=== PATIENT | female | born 1985 | race Caucasian/White ===

== ENCOUNTER 2019-06-12 11:42 | Emergency (ER) | payer OTHER ==
--- NOTE | 2019-06-12 13:28 | ER Document Report ---
ED Medical Screen (RME) - General Chief Complaint: Abdominal Pain Stated Complaint: LOWER ABDOMINAL PAIN/RIGHT ARMPIT PAIN Time Seen by Provider: 06/12/19 13:22 Mode of Arrival: Ambulatory Information source: Patient Notes: Otherwise healthy 33-year-old female presents emergency department chief complaint of low abdominal pain over the last 3 months but worsening over the last 3 days. Patient reports associated nausea but denies vomiting, diarrhea, fevers or abnormal vaginal discharge. She does report having a history of reactive lymph nodes in her breast and axillary area. She is concerned that she may have reactive lymph nodes in her groin. Exam: Tenderness on palpation to the low abdomen, no guarding no rebound. I have greeted and performed a rapid initial assessment of this patient. A comprehensive ED assessment and evaluation of the patient, analysis of test results and completion of the medical decision making process will be conducted by additional ED providers. I have specifically instructed the patient or family members with the patient to immediately return to any nursing staff should anything change in the patient's condition or with their chief complaint. - Related Data Allergies/Adverse Reactions: No Known Allergies Allergy (Unverified 06/12/19 13:21) Past Medical History - Social History Chew tobacco use (# tins/day): No Drug Abuse: None Physical Exam - Vital signs Vitals: Temp Pulse Resp BP Pulse Ox 98.5 F 67 16 116/69 98 06/12/19 12:15 06/12/19 12:15 06/12/19 12:15 06/12/19 12:15 06/12/19 12:15 Course - Vital Signs Vital signs: Temp Pulse Resp BP Pulse Ox 98.5 F 67 16 116/69 98 06/12/19 12:15 06/12/19 12:15 06/12/19 12:15 06/12/19 12:15 06/12/19 12:15
[2019-06-12 14:28] LABS: APPEARANCE,URINE CLEAR; BILIRUBIN,URINE NEGATIVE (NEGATIVE); COLOR,URINE STRAW; GLUCOSE, URINE NEGATIVE (NEGATIVE); KETONES,URINE NEGATIVE (NEGATIVE); LEUKOCYTE ESTERASE,URINE NEGATIVE (NEGATIVE); NITRITE,URINE NEGATIVE (NEGATIVE); PROTEIN,URINE NEGATIVE (NEGATIVE); URINE SPECIFIC GRAVITY 1.018; UROBILINOGEN,URINE NEGATIVE mg/dL (<2.0)
[2019-06-12 14:54] LABS: ABSOLUTE EOSINOPHILS # (AUTO) 0.3 10^3/uL (0.0-0.6); ABSOLUTE LYMPHOCYTES (AUTO) 2.5 10^3/uL (0.5-4.7); ABSOLUTE MONOCYTES (AUTO) 0.5 10^3/uL (0.1-1.4); ABSOLUTE NEUT (AUTO) 4.1 10^3/uL (1.7-8.2); BASOPHILS % (AUTO) 0.6 % (0-2); EOSINOPHILS % (AUTO) 3.5 % (0-6); HEMATOCRIT 45.4 % (36.0-47.0); HEMOGLOBIN 15.3 g/dL (12.0-15.5); LYMPHOCYTES % (AUTO) 33.3 % (13-45); MEAN CORPUSCULAR HGB CONC 33.7 g/dL (32.0-36.0); MEAN CORPUSCULAR VOLUME 86 fl (80-97); MONOCYTES % (AUTO) 7.2 % (3-13); PLATELET COUNT 220 10^3/uL (150-450); RED BLOOD COUNT 5.27 10^6/uL (3.72-5.28); RED CELL DISTRIBUTION WIDTH 13.4 % (11.5-14.0); SEGMENTED NEUTROPHILS % (AUTO) 55.4 % (42-78); TOTAL CELLS COUNTED % (AUTO) 100 %; WHITE BLOOD COUNT 7.4 10^3/uL (4.0-10.5)
[2019-06-12 15:09] LABS: ALKALINE PHOSPHATASE 89 U/L (38-126); ANION GAP 14 (5-19); ASPARTATE AMINO TRANSFERASE 44 U/L (14-36); BILIRUBIN,DIRECT 0.2 mg/dL (0.0-0.4); BILIRUBIN,TOTAL 0.3 mg/dL (0.2-1.3); BLOOD UREA NITROGEN 12 mg/dL (7-20); CALCIUM 10.1 mg/dL (8.4-10.2); CARBON DIOXIDE 23 mmol/L (22-30); CHLORIDE 104 mmol/L (98-107); GLUCOSE 83 mg/dL (75-110); POTASSIUM 4.4 mmol/L (3.6-5.0); TOTAL PROTEIN 8.1 g/dL (6.3-8.2)
--- NOTE | 2019-06-12 15:34 | ER Document Report ---
ED General - General Chief Complaint: Abdominal Pain Stated Complaint: LOWER ABDOMINAL PAIN/RIGHT ARMPIT PAIN Time Seen by Provider: 06/12/19 13:22 Mode of Arrival: Ambulatory - HPI Notes: 33-year-old female with a chief complaint of 3 months history of suprapubic discomfort and secondary amenorrhea. Patient is a 2 para 2 with 1 set of twins and 1 spontaneous miscarriage. She had a NuvaRing for contraception and this was stopped about 3 months ago. She notes that she has not restarted her period then and has had cramping discomfort in suprapubic area intermittently since then. She is not considered is bad enough to take any pain medication. She denies dysuria, fever, chills, nausea, vomiting or change in bowel habits. She denies any known history of endometriosis or fibroids. 10 pound weight gain within the last 3 months. 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 She is not currently on any medication. Patient reports no known allergies. She is a non-smoker. Rare social alcohol. Denies use of drugs. - Related Data Allergies/Adverse Reactions: No Known Allergies Allergy (Unverified 06/12/19 13:21) Past Medical History - General Information source: Patient - Social History Smoking Status: Never Smoker Chew tobacco use (# tins/day): No Drug Abuse: None Family History: Reviewed & Not Pertinent Patient has suicidal ideation: No Patient has homicidal ideation: No Past Surgical History: Reports: Other - Transphenoidal hypophysectomy for Joie's disease Review of Systems - Review of Systems Notes: Constitutional: Negative for fever. HENT: Negative for sore throat. Eyes: Negative for visual changes. Cardiovascular: Negative for chest pain. Respiratory: Negative for shortness of breath. Gastrointestinal: Negative for abdominal pain, vomiting or diarrhea. Genitourinary: As per HPI. Musculoskeletal: Negative for back pain. Skin: Negative for rash. Neurological: Negative for headaches, weakness or numbness. 10 point ROS negative except as marked above and in HPI. Physical Exam - Vital signs Vitals: Temp Pulse Resp BP Pulse Ox 98.5 F 67 16 116/69 98 06/12/19 12:15 06/12/19 12:15 06/12/19 12:15 06/12/19 12:15 06/12/19 12:15 - Notes Notes: GENERAL: Well-developed well-nourished appearing in no acute distress. SKIN: Good turgor no rashes. HEAD: Normocephalic atraumatic. EYES: PERRLA. EOMI. Conjunctivae and sclerae clear. EARS: CANALS AND TMS CLEAR. NOSE: CLEAR. MOUTH: Moist mucosa. Good dentition. No stridor or edema. No drooling. NECK: Supple. No masses or thyromegaly. No adenopathy. Carotids 2+ without bruits. No JVD. BACK: Symmetrical without tenderness. CHEST: Respirations unlabored. Breath sounds clear and symmetrical. HEART: Regular rhythm. No murmur gallop or rub. ABDOMEN: Soft nontender without masses, organomegaly or rebound. Bowel sounds normally active. No bruits. GENITALIA: Deferred. EXTREMITIES: No edema. No calf tenderness. Cap refill less than 1.5 seconds. Dorsalis pedis and posterior tibial pulses 3+ and symmetrical. NEUROLOGICAL: GCS 15. Alert and oriented x3. Normal gait. Fluent speech. Cranial nerves II through XII intact. Sensorimotor and cerebellar normal. Normal tone. PSYCHIATRIC: Appropriate affect. Course - Re-evaluation Re-evalutation: 06/12/19 18:02 FSH and TSH are both normal. She has some changes consistent with hemorrhagic cyst of the right ovary. Left ovary is not visualized. No other abnormalities reported on the ultrasound of the pelvis. I think she stable for outpatient follow-up with [facility] and will make referral for her. I am also going to start her on some naproxen at home. - Vital Signs Vital signs: Temp Pulse Resp BP Pulse Ox 98.5 F 67 16 116/69 98 06/12/19 12:15 06/12/19 12:15 06/12/19 12:15 06/12/19 12:15 06/12/19 12:15 - Laboratory Result Diagrams: 06/12/19 14:42 06/12/19 14:42 Laboratory results interpreted by me: 06/12/19 14:42 Creatinine 0.51 L AST 44 H FSH and TSH are both normal.06/12/19 18:03 - Diagnostic Test Radiology reviewed: Reports reviewed Discharge - Discharge Clinical Impression: Ovarian cyst, right, Pelvic pain, Secondary amenorrhea Condition: Stable Disposition: HOME, SELF-CARE Additional Instructions: Ovarian Cyst Your examination shows the presence of an ovarian cyst. This is a ball of fluid attached to the ovary. Ovarian cysts in women of child-bearing age are usually innocent. However, the cyst may cause pain when it grows or bursts. An innocent ovarian cyst will usually go away by itself. When the cyst becomes painful, you should rest. Pain medication may be required. Some women find a hot water bottle soothing. The pain usually resolves within one or two days. After menopause, an ovarian cyst may mean a tumor, and requires more aggressive evaluation -- usually surgery is recommended to remove or biopsy the cyst. A very large cyst requires evaluation at any age. Most cysts (even the innocent ones) require follow-up examination. Call the doctor or return at any time if the pain increases significantly, if you become faint, or if you experience vaginal bleeding. Return here as needed for new or worsening symptoms. Take prescribed medicine as directed Follow-up with referral [facility] specialist. Prescriptions: Naproxen 500 mg PO BID PRN #14 tablet PRN Reason:
--- NOTE | 2019-06-12 17:51 | RADIOLOGY REPORT (SQ) ---
EXAM DESCRIPTION: U/S NON OB PEL TV W/DOPPLER COMPLETED DATE/TIME: 06/12/2019 5:18 pm REASON FOR STUDY: Pelvic pain and amenorrhea COMPARISON: None. TECHNIQUE: Dynamic and static grayscale images acquired of the pelvis via transvaginal approach and recorded on PACS. Additional selected color Doppler and spectral images recorded. LIMITATIONS: None. FINDINGS: UTERUS: Contour normal. No mass. ENDOMETRIAL STRIPE: No focal or generalized thickening. No masses. CERVIX: Incidental note is note of a small nabothian cyst. RIGHT OVARY AND DOPPLER: The right ovary is expanded by what appears to be a hemorrhagic cyst (comple x echogenicity demonstrating posterior acoustic enhancement). Venous flow was demonstrated. LEFT OVARY AND DOPPLER: Obscured by intervening bowel gas. FREE FLUID: None noted. OTHER: No other significant finding. MEASUREMENTS: UTERUS: 8.4 x 4.0 x 5.0 cm ENDOMETRIAL STRIPE: 1.7 cm RIGHT OVARY: 4.4 x 4.2 x 4.0 cm LEFT OVARY: Not visualized. IMPRESSION: Likely right ovarian hemorrhagic cyst; consider repeat sonographic evaluation in 3 month s. The left ovary is not visualized on today's examination. TECHNICAL DOCUMENTATION: JOB ID: [id number] [employer]- All Rights Reserved Rev-11/01 Reading location - IP/workstation name: [email or web address]
[2019-06-12 18:46] VITALS: BP 114/74
== END 2019-06-12 18:43 | disposition home or self-care (01) ==
LOC: ER 11:42
DX: N83.201 Unspecified ovarian cyst, right side (principal); N91.1 Secondary amenorrhea; R10.2 Pelvic and perineal pain; R63.5 Abnormal weight gain
CPT/HCPCS: 36415; 76830; 80053; 81001; 83001; 84443; 84703; 85025; 93976; 99284

== ENCOUNTER 2019-08-20 20:09 | Emergency (ER) | payer OTHER ==
--- NOTE | 2019-08-20 20:39 | ER Document Report ---
ED Medical Screen (RME) - General Chief Complaint: Abdominal Pain Stated Complaint: ABDOMINAL PAIN, NAUSEA, DIZZINESS Time Seen by Provider: 08/20/19 20:35 Mode of Arrival: Ambulatory Information source: Patient Notes: 33-year-old female presents to ED for complaint of abdominal pain nausea ordering in her mouth but no vomiting. She states she does have chronic constipation and is needed have a bowel movement for a while has only had a little bit of watery stool when she takes double Linzess. 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 She also has a history of scoliosis. She states her last menstrual period was August 03. She does not smoke she does socially drink but no drugs. She states that the constipation and pain is so bad she cannot take care of her children for dinner tonight because of the pain and discomfort. Patient is alert oriented respirations regular nonlabored speaking in full sentences. I have greeted and performed a rapid initial assessment of this patient. A comprehensive ED assessment and evaluation of the patient, analysis of test results and completion of medical decision making process will be conducted by an additional ED providers. - Related Data Allergies/Adverse Reactions: No Known Allergies Allergy (Verified 08/20/19 20:31) Past Medical History Past Surgical History: Reports: Other - Transphenoidal hypophysectomy for [place]'s disease Physical Exam - Vital signs Vitals: Temp Pulse Resp BP Pulse Ox 98.4 F 79 20 128/75 H 100 08/20/19 20:29 08/20/19 20:29 08/20/19 20:29 08/20/19 20:29 08/20/19 20:29 Course - Vital Signs Vital signs: Temp Pulse Resp BP Pulse Ox 98.4 F 79 20 128/75 H 100 08/20/19 20:29 08/20/19 20:29 08/20/19 20:29 08/20/19 20:29 08/20/19 20:29
[2019-08-20 20:56] LABS: ABSOLUTE EOSINOPHILS # (AUTO) 0.3 10^3/uL (0.0-0.6); ABSOLUTE MONOCYTES (AUTO) 0.7 10^3/uL (0.1-1.4); ABSOLUTE NEUT (AUTO) 6.3 10^3/uL (1.7-8.2); BASOPHILS % (AUTO) 0.4 % (0-2); EOSINOPHILS % (AUTO) 3.1 % (0-6); HEMATOCRIT 43.3 % (36.0-47.0); HEMOGLOBIN 14.7 g/dL (12.0-15.5); LYMPHOCYTES % (AUTO) 28.6 % (13-45); MEAN CORPUSCULAR HEMOGLOBIN 28.8 pg (27.0-33.4); MEAN CORPUSCULAR HGB CONC 33.9 g/dL (32.0-36.0); MEAN CORPUSCULAR VOLUME 85 fl (80-97); MONOCYTES % (AUTO) 7.2 % (3-13); PLATELET COUNT 255 10^3/uL (150-450); RED BLOOD COUNT 5.09 10^6/uL (3.72-5.28); RED CELL DISTRIBUTION WIDTH 14.1 % (11.5-14.0); SEGMENTED NEUTROPHILS % (AUTO) 60.7 % (42-78); TOTAL CELLS COUNTED % (AUTO) 100 %; WHITE BLOOD COUNT 10.4 10^3/uL (4.0-10.5)
[2019-08-20 21:03] LABS: APPEARANCE,URINE SLIGHTLY-CLOUDY; BILIRUBIN,URINE NEGATIVE (NEGATIVE); COLOR,URINE YELLOW; GLUCOSE, URINE NEGATIVE (NEGATIVE); KETONES,URINE 20 mg/dL (NEGATIVE); PROTEIN,URINE NEGATIVE (NEGATIVE); URINE SPECIFIC GRAVITY 1.028; UROBILINOGEN,URINE NEGATIVE mg/dL (<2.0)
[2019-08-20 21:12] LABS: ALBUMIN 4.6 g/dL (3.5-5.0); ALKALINE PHOSPHATASE 80 U/L (38-126); ANION GAP 9 (5-19); ASPARTATE AMINO TRANSFERASE 24 U/L (14-36); BILIRUBIN,TOTAL 0.2 mg/dL (0.2-1.3); BLOOD UREA NITROGEN 15 mg/dL (7-20); CALCIUM 9.3 mg/dL (8.4-10.2); CARBON DIOXIDE 23 mmol/L (22-30); CHLORIDE 106 mmol/L (98-107); GLUCOSE 93 mg/dL (75-110); POTASSIUM 4.1 mmol/L (3.6-5.0); TOTAL PROTEIN 7.3 g/dL (6.3-8.2)
--- NOTE | 2019-08-20 21:50 | RADIOLOGY REPORT (SQ) ---
EXAM DESCRIPTION: Single view of the chest and two views of the abdomen. CLINICAL HISTORY: 33 years Female, Abdominal pain bloating nausea vomiting COMPARISON: None. FINDINGS: Chest: Lungs are clear. Heart size is normal. No pneumonia or edema. No pneumothorax or pleural effusion. There is postsurgical change of spinal hardware in the thoracic spine. ABDOMEN: Bowel gas pattern is nonspecific with distention noted predominantly in the colon. There is a small amount of air seen in the nondistended small bowel. No air-fluid levels. No free intraperitoneal air. No obstruction. Multiple phleboliths are present in the pelvis. IMPRESSION: 1. No pneumonia or edema. 2. Nonspecific bowel gas pattern. No obstruction or free air.
[2019-08-21 00:19] VITALS: BP 109/71
[2019-08-21] MEDS ORDERED: NORMAL SALINE 1000 ML 1,000 ML IV ONE (00:36)
[2019-08-21] MEDS ORDERED: ONDANSETRON HCL INJ/PF 4 MG/2 ML SDV IV ONE (00:36)
[2019-08-21] MEDS ORDERED: SUCRALFATE 1 GM TABLET PO ONE (00:36)
[2019-08-21] MEDS ORDERED: FAMOTIDINE 20 MG TABLET PO ONE (00:36)
--- NOTE | 2019-08-21 01:07 | ER Document Report ---
ED GI/ - General Chief Complaint: Abdominal Pain Stated Complaint: ABDOMINAL PAIN, NAUSEA, DIZZINESS Time Seen by Provider: 08/20/19 20:35 Mode of Arrival: Ambulatory Notes: Patient is a 33-year-old female who comes emergency department for chief complaint of abdominal pain that is in the mid to upper abdomen and nausea. She denies vomiting. She states that she does have chronic constipation, she took double Linzess for the past couple of days but is still not having significant bowel movements. She states she feels bloated. She denies bloody stools. She denies fever. She denies dysuria, vaginal discharge or bleeding. She has had no abdominal surgeries. She states she has never had an endoscopy or col onoscopy. She states that if she eats she gets nauseated, occasionally gets reflux, and feels full. She has a history of Campbell's disease status post tumor resection, history of scoliosis status post hardware, denies medical history otherwise. She denies daily medications otherwise. TRAVEL OUTSIDE OF THE [place] IN LAST 30 DAYS: No - Related Data Allergies/Adverse Reactions: No Known Allergies Allergy (Verified 08/20/19 20:31) Past Medical History - General Information source: Patient - Social History Smoking Status: Never Smoker Frequency of alcohol use: None Drug Abuse: None Lives with: Family Family History: Reviewed & Not Pertinent Patient has suicidal ideation: No Patient has homicidal ideation: No Past Surgical History: Reports: Other - Transphenoidal hypophysectomy for Campbell's disease - Immunizations Immunizations up to date: Yes Hx Diphtheria, Pertussis, Tetanus Vaccination: Yes Review of Systems - Review of Systems Constitutional: No symptoms reported EENT: No symptoms reported Cardiovascular: No symptoms reported Respiratory: No symptoms reported Gastrointestinal: See HPI Genitourinary: No symptoms reported Female Genitourinary: No symptoms reported Musculoskeletal: No symptoms reported Skin: No symptoms reported Hematologic/Lymphatic: No symptoms reported Neurological/Psychological: No symptoms reported Physical Exam - Vital signs Vitals: Temp Pulse Resp BP Pulse Ox 98.4 F 79 20 128/75 H 100 08/20/19 20:29 08/20/19 20:29 08/20/19 20:29 08/20/19 20:29 08/20/19 20:29 - Notes Notes: GENERAL: Alert, interacts well. No acute distress. HEAD: Normocephalic, atraumatic. EYES: Pupils equal, round, and reactive to light. Extraocular movements intact. ENT: Oral mucosa dry, tongue midline. Oropharynx unremarkable. Airway patent. LUNGS: Clear to auscultation bilaterally, no wheezes, rales, or rhonchi. No respiratory distress. HEART: Regular rate and rhythm. No murmur ABDOMEN: Mild tenderness to the mid to upper abdomen generally, lower abdomen benign. No rigidity or guarding. Bowel sounds present. GENITOURINARY: Deferred EXTREMITIES: Moves all 4 extremities spontaneously. No edema, normal radial and dorsalis pedis pulses bilaterally. No cyanosis. BACK: no cervical, thoracic, lumbar midline tenderness. No saddle anesthesia, normal distal neurovascular exam. Moves all extremities in full range of motion. NEUROLOGICAL: Alert and oriented x3. Normal speech. Cranial nerves II through XII grossly intact. PSYCH: Normal affect, normal mood. SKIN: Warm, dry, normal turgor. No rashes or lesions noted. Course - Re-evaluation Re-evalutation: CBC, chemistry, urinalysis unremarkable except for dehydration. test negative. Acute abdominal series shows some retained gas but no significant retained stool, no obstructive findings. I discussed with patient. Based on her symptoms after eating, vague mid upper abdominal pain, and ongoing symptoms I suspect a component of gastritis. I discussed with patient. I recommended rehydration, treatment for gastritis, and symptom management. I discussed details of gastritis, things to avoid, and follow-up. Patient will be given IV fluids, initial medications, I reevaluate her. Patient states appreciation and agreement. Nursing staff came to me and stated that patient suddenly left stating she was going to her kids. Patient eloped. - Vital Signs Vital signs: Temp Pulse Resp BP Pulse Ox 98.1 F 64 18 109/71 99 08/21/19 00:02 08/21/19 00:02 08/21/19 00:02 08/21/19 00:02 08/21/19 00:02 - Laboratory Result Diagrams: 08/20/19 20:40 08/20/19 20:40 Laboratory results interpreted by me: 08/20/19 08/20/19 20:40 20:40 RDW 14.1 H Urine Ketones 20 H Urine Blood SMALL H Discharge - Discharge Clinical Impression: Abdominal pain Qualifiers: Abdominal location: generalized Qualified Code(s): R10.84 - Generalized abdominal pain Disposition: ELOPED
== END 2019-08-21 01:00 | disposition left against medical advice (07) ==
LOC: ER 20:09
DX: R10.84 Generalized abdominal pain (principal); R11.0 Nausea; E86.0 Dehydration; Z53.29 Procedure and treatment not carried out because of patient's decision for other reasons
CPT/HCPCS: 36415; 74022; 80053; 81001; 83690; 84703; 85025; 99281

== ENCOUNTER 2019-11-27 16:22 | Emergency (ER) | payer OTHER | END 2019-11-27 16:30 | disposition left against medical advice (07) | LOC: ER 16:22 | DX: Z53.21 Procedure and treatment not carried out due to patient leaving prior to being seen by health care provider (principal) ==

== ENCOUNTER 2019-11-27 17:30 | Emergency (ER) | payer OTHER ==
[2019-11-27 20:01] LABS: A TYPE INFLUENZA AG NEGATIVE (NEGATIVE); B INFLUENZA AG NEGATIVE (NEGATIVE)
[2019-11-27 20:48] VITALS: BP 126/84
--- NOTE | 2019-11-27 20:48 | ER Document Report ---
HPI - HPI Patient complains to provider of: Sore throat Time Seen by Provider: 11/27/19 18:04 Onset: Other - This 34-year-old female presents to the emergency room today stating that she had a sore throat. She states that she had pharyngitis 6 weeks ago with white spots exudate and erythema. She was on amoxicillin for 2 days when her doctor flipped her over to her azithromycin. She had been fine when the pain came back 2 days ago. Severity: None Pain Level: 3 Associated Symptoms: None Exacerbated by: Denies - EENT EENT: REPORTS: Sore Throat Past Medical History - General Information source: Patient - Social History Smoking Status: Never Smoker Frequency of alcohol use: Occasional Drug Abuse: None Family History: Reviewed & Not Pertinent Patient has homicidal ideation: No Past Surgical History: Reports: Other - Transphenoidal hypophysectomy for [place]'s disease - Immunizations Immunizations up to date: Yes Hx Diphtheria, Pertussis, Tetanus Vaccination: Yes Vertical Provider Document - CONSTITUTIONAL Agree With Documented VS: Yes - INFECTION CONTROL TRAVEL OUTSIDE OF THE [place] IN LAST 30 DAYS: No - HEENT HEENT: Atraumatic, Conjuctival Injection, Normocephalic, PERRLA. negative: Pharyngeal Exudate, Pharyngeal Erythema - NECK Neck: Normal Inspection, Supple, Thyroid Normal. negative: Lymphadenopathy- Left, Lymphadenopathy-Right - RESPIRATORY Respiratory: Breath Sounds Normal, No Respiratory Distress - CARDIOVASCULAR Cardiovascular: Regular Rate, Regular Rhythm - GI/ABDOMEN Gastrointestinal: Abdomen Soft, Abdomen Non-Tender - REPRODUCTIVE Female Genitalia: Normal Inspection Course - Re-evaluation Re-evalutation: 11/27/19 20:45 The patient I had a conversation about her negative results she had no pharyngeal erythema she had no exudate. She had no nausea no vomiting no fever. We discussed the fact that she did have his azithromycin for a pharyngitis 6 weeks ago we discussed the possibility that potentially she had a subclinical case of strep throat still that was deep in the tissue and thus did not present as positive on the swab. The patient and I agreed to put her on a course of Augmentin. She should follow-up with her PMD in 3 to 5 days. Increase fluid intake rest return here for any change or worsening of condition. Upon follow-up with her PMD she should advise the doctor of the antibiotic selections I made in exactly why I made it thus she has medical insight as to future treatment. - Vital Signs Vital signs: Temp Pulse Resp BP Pulse Ox 98.3 F 11/27/19 18:00 - Laboratory Laboratory results interpreted by me: 11/27/19 20:45 Labs- All tests 24 hr 11/27/19 11/27/19 19:10 19:10 Influenza A (Rapid) NEGATIVE Influenza B (Rapid) NEGATIVE Group A Strep Rapid NEGATIVE Discharge - Discharge Clinical Impression: Reactive airway disease that is not asthma Disposition: HOME, SELF-CARE Additional Instructions: Salt water gargles 4-5 times a day. Increase fluid intake rest. Follow-up with PMD in 3 to 5 days. Return to the emergency room for any change worsening condition. Prescriptions: Amoxicillin/Potassium Clav [Augmentin 875-125 Tablet] 1 tab PO Q12 #20 tablet
== END 2019-11-27 20:53 | disposition home or self-care (01) ==
LOC: ER 17:30
DX: J98.9 Respiratory disorder, unspecified (principal); J02.9 Acute pharyngitis, unspecified
CPT/HCPCS: 36415; 87070; 87804; 87880; 99283

== ENCOUNTER → 2020-01-07 | Outpatient (CLI) | payer OTHER ==
[2020-01-07 10:43] VITALS: BP 111/59
--- NOTE | 2020-01-07 10:43 | ER RDC ASSESSMENT REPORT ---
Intake - In the Last 14 days Have you traveled outside [place]?: No Have you been in close contact with someone CONFIRMED: No Worked in Healthcare?: No - Symptoms Subjective Fever([place] feverish): Yes Chills: Yes Muscule Aches: No Runny Nose: No Sore Throat: No Cough (New or worsening chronic cough): No Shortness of breath: Yes Nausea or Vomiting: Yes Headache: Yes Abdominal Pain: Yes Diarrhea(3 or more loose stools in last 24 hours): Yes - Do you have any of the following Chronic lung disease: Asthma or emphysema or COPD: No Cystic Fibrosis: No Diabetes: No High Blood Pressure: No Cardiovascular Disease: No Chronic Kidney Disease: No Chronic Liver Disease: No Chronic blood disorder like Sickle Cell Disease: No Weak immune system due to disease or medication: No Neurologic condition that limits movement: No Developmental delay - Moderate to Severe: No Recent (within past 2 weeks) or current : No Morbid Obesity (>100 pounds over ideal weight): No - Objective Vital Signs: 5'7", 190 lb Temperature: 97.0 F Pulse Rate: 78 Respiratory Rate: 12 Blood Pressure: 111/59 O2 Sat by Pulse Oximetry: 95 Objective: Given above, testing performed: flu, covid Disposition: Home; Selfcare General - General Chief Complaint: Flu Symptoms Time Seen by Provider: 01/07/20 10:20 Mode of Arrival: Ambulatory Information source: Patient - HPI Notes: 34-year-old female presents to [facility] clinic for COVID-19 testing. 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 Patient is reporting no known contact with COVID-19 positive individual. She reports onset of symptoms approximately 2 to 3 days ago. She is complaining of mild to moderate low-grade fever, chills, tightness in her chest, nausea, headache, abdominal pain, and diarrhea. She is denying any sig nificant myalgia, rhinorrhea, sore throat, cough or shortness of breath at rest. - Related Data Allergies/Adverse Reactions: No Known Allergies Allergy (Verified 08/20/19 20:31) Home Medications: Trintellix omeprazole Past Medical History - General Information source: Patient - Social History Smoking Status: Never Smoker Family History: Reviewed & Not Pertinent - Past Medical History Cardiac Medical History: Reports: None Pulmonary Medical History: Reports: None EENT Medical History: Reports: None Neurological Medical History: Reports: None Endocrine Medical History: Reports: Other Other: Cushings, pituitary tumor Renal/ Medical History: Reports: None Malignancy Medical History: Reports: None GI Medical History: Reports: None Musculoskeletal Medical History: Reports None Skin Medical History: Reports None Psychiatric Medical History: Reports: None Traumatic Medical History: Reports: None Infectious Medical History: Reports: None Past Surgical History: Reports: Hx Orthopedic Surgery, Hx Pituitary Surgery, Other - Transphenoidal hypophysectomy for Joie's disease Physical Exam - General General appearance: Appears well, Alert In distress: None Notes: PHYSICAL EXAMINATION: GENERAL: Well-appearing and in no acute distress. HEAD: Atraumatic, normocephalic. EYES: sclera anicteric, conjunctiva are normal. ENT: nares patent. Moist mucous membranes. NECK: Normal range of motion, supple without lymphadenopathy LUNGS: CTAB and equal. No wheezes rales or rhonchi. HEART: Regular rate and rhythm without murmurs ABDOMEN: Soft, nontender, normal bowel sounds, no guarding. EXTREMITIES: Normal range of motion, no pitting edema. No cyanosis. NEUROLOGICAL: Cranial nerves grossly intact. Normal speech. PSYCH: Normal mood, normal affect. SKIN: Warm, Dry, normal turgor, no rashes or lesions noted Diagnostic Results Laboratory Results: Flu a and flu B both negative, COVID pending Patient Education/Counseling Counseling/Education: Patient presents with upper respiratory symptoms worrisome for possible Covid 19. Patient does not have emergency worrying symptoms such as difficulty breathing, shortness of breath, chest pain, pressure, confusion or cyanosis. Patient appears suitable for discharge as vital signs are stable and patient is nontoxic in appearance. Good return precautions have been discussed with patient, patient verbalized understanding and is agreeable with discharge plan of care at this time. Guidance for worsening S/SX: As a person under investigation for Covid 19, the [place] department of Health and Human Services, division of public health advises you to adhere to the following guidance until your test results are reported to you. If your test result is positive, you will receive additional information from your provider and your local health department at that time. Remain at home until you are cleared by the health provider or public health authorities. Keep a log of visitors to your home, notify any visitors to your home of your isolation status. If you plan to move to a new address or leave the county, notify the local health department in your County. Call your doctor or seek care if you have an urgent medical need. Before seeking medical care, call ahead to get instructions from the provider before arriving at the medical office clinic or hospital. Notify them that you are being tested for the virus that causes Covid 19 so that arrangements can be made, as necessary, to prevent transmission to others in the healthcare setting. Next, notify the local health department in your county. If a medical emergency arises and you need to call 911, inform the first responders that you are being tested for the virus that causes Covid 19. Next, notify the local health department in your county. RDC Discharge - Discharge Clinical Impression: Encounter for screening laboratory testing for COVID-19 virus Upper respiratory infection Qualifiers: URI type: unspecified URI Qualified Code(s): J06.9 - Acute upper respiratory infection, unspecified Condition: Good Disposition: Home; Selfcare
[2020-01-07 11:32] LABS: A TYPE INFLUENZA AG NEGATIVE (NEGATIVE); B INFLUENZA AG NEGATIVE (NEGATIVE)
== END ==
LOC: RDC 09:49
PROVIDERS: ATTEND Registered Nurse
DX: Z20.828 Contact with and (suspected) exposure to other viral communicable diseases (principal); J06.9 Acute upper respiratory infection, unspecified; R50.9 Fever, unspecified; R11.0 Nausea; R07.89 Other chest pain; R51 Headache; R10.9 Unspecified abdominal pain; R19.7 Diarrhea, unspecified; E24.9 Cushing's syndrome, unspecified
CPT/HCPCS: 87635; 87804; C9803; 99201; 99211

== ENCOUNTER → 2020-02-04 | Outpatient (CLI) | payer OTHER | LOC: OD 13:53 | PROVIDERS: ATTEND Otolaryngology | DX: J30.9 Allergic rhinitis, unspecified (principal) | CPT/HCPCS: 36415; 82785; 86003 ==

== ENCOUNTER 2020-07-15 19:36 | Emergency (ER) | payer OTHER ==
[2020-07-15 19:42] VITALS: BP 127/76
[2020-07-15] MEDS ORDERED: TETRACAINE HCL 0.5% OPH SOLN 4 ML OD ONE ×2 (20:50→20:55)
--- NOTE | 2020-07-15 22:08 | ER Document Report ---
ED Eye Complaint - General Chief Complaint: Eye Injury Stated Complaint: LEFT EYE PAIN Primary Care Provider: JULIO CHEEMA MD [Primary Care Provider] - Follow up as needed TRAVEL OUTSIDE OF THE [place] IN LAST 30 DAYS: No - HPI Notes: Chief Complaint: Left eye injury Historian: History obtained from patient HPI: This is a 34-year-old female presents to the ER complaining of left eye pain after a chicken accidentally picked her left eyeball around 5:30 tonight. Patient states that the chicken may have believes that her eye was a great was trying to eat it. Patient does not wear contacts. She reports some mild blurriness of vision, although visual acuity is at baseline. No known foreign bodies though patient does have a sensation of having a "flap" to the medial upper portion of the eye. ROS: Constitutional: no fevers. HEENT: no MCCORD, sore throat, left eye pain, loss or blurry vision. CV: no chest pain or palpitations. Resp: no cough or SOB. GI: no abdominal pain, or n/v/d. : no dysuria, hematuria, or incont. MSK: no back pain, no joint swelling/redness. Skin: no rashes or itching. Neuro: no seizures, weakness, numbness, or confusion. Hematological: no ecchymosis or easy bleeding. Endocrine: no polyuria/polydipsia, no heat/cold intolerance. Psych: no SI/HI, AH/VH or memory loss. PMHx: Reviewed and agree as charted by RN. PSHx: Reviewed and agree as charted by RN. SOCHx: Reviewed and agree as charted by RN. FHX: No significant familial comorbid conditions directly related to patient complaint Current Medications: Reviewed and agree with the patient medications as charted by the RN. Allergies: Reviewed and agree with the listed allergies as charted by the RN Physical Exam: Vitals: Reviewed in chart as documented by RN. General: Alert and in NAD. Head: Normocephalic; atraumatic Eyes: PERRLA, no orbital swelling, erythema, tenderness. Lids and lashes within normal limits bilateral. EOMI intact bilaterally and painless. Vision grossly normal bilaterally. Left eyeGlobe soft. No teardrop pupil. No gross conjunctival hemorrhage. Anterior chamber clear gross midline corneal abrasion noted, best visualized with fluorescein and tetracaine. Obliquely oriented 7 mm abrasion that extends from 2:00 to 7:00. About 2 mm in thickness. No gross foreign body identified. Patient has multiple scleral abrasions. She has my 12:00, 2:00, 7:00. These range from 2 to 3 mm apiece no obvious conjunctiva will laceration. No active hemorrhage from the eye. Pupil was 3 mm round reactive to accommodation and light. Lids were everted and no foreign body foreign body identified, no lid lacerations identified. Globe was soft, no concern for acute angle glaucoma. ENT: no soft palate swelling or uvular deviation Neck: trachea midline, no unilateral swelling/tenderness/lymphadenopathy CV: RRR, no M/R/G; symmetric distal pulses Resp: respirations even and unlabored, CTA bilat. GI: abd soft and nondistended. NTTP. normal BS. no masses/HSM. no CVAT bilat MSK: FROM of all extremities. No midline CTL spine tenderness/deformity Skin: warm, moist, good turgor. no rash/lesions Neuro: Alert and oriented X 4. following CN 2-12 intact. no unilateral weakness/numbness Psych: No SI/HI or AH/VH. Medical Decision-making/Differential Diagnosis: Consider various etiologies including but not limited to infection, metabolic derangement, refractive error, medication reaction, corneal pathology (abrasion, laceration), conjunctival processes, endophthalmitis (low prob), hyphema, hypopion, chalazion, hordeolum, blepharitis, Ocular vascular disease (retinal vascular occlusion, ischemic, retinopathy, vitreous hemorrhage, maculopathy) plan for visual acuity, tetracaine/fluorescein, as needed slit lamp. Med staff reports patient's vision is grossly intact bilaterally 2019. Patient does not wear contacts. I further examined the eye after tetracaine and fluorescein. As noted in my above physical exam patient does have a very large corneal abrasion across the center of the cornea and multiple smaller abrasions around the periphery. I saw no signs of globe trauma no ulcerations no foreign bodies and no hemorrhage. Patient was grossly intact. Plan is to start her on topical antibiotics. Will give her referral to ophthalmology considering the size of this abrasion. Eye was irrigated before discharge. Patient is agree ment with plan of care. We discussed strict return factors and she verbalized understanding. This course of action was discussed with the patient and/or family. They were amenable to this, verbalized understanding, and were without further questions. - Related Data Allergies/Adverse Reactions: No Known Allergies Allergy (Verified 08/20/19 20:31) Past Medical History - Social History Smoking Status: Unknown if Ever Smoked Family History: Reviewed & Not Pertinent Past Surgical History: Reports: Hx Orthopedic Surgery, Hx Pituitary Surgery, Other - Transphenoidal hypophysectomy for Joie's disease - Immunizations Immunizations up to date: Yes Hx Diphtheria, Pertussis, Tetanus Vaccination: Yes Physical Exam - Vital signs Vitals: Temp Pulse Resp BP Pulse Ox 98.0 F 77 20 127/76 H 99 07/15/20 19:40 07/15/20 19:40 07/15/20 19:40 07/15/20 19:40 07/15/20 19:40 - HEENT Visual acuity- Right eye: 20/20 Visual acuity- Left eye: 20/20 Visual acuity- Both eyes: 20/20 Corrective lenses worn: No Course - Vital Signs Vital signs: Temp Pulse Resp BP Pulse Ox 98.0 F 77 20 127/76 H 99 07/15/20 19:40 07/15/20 19:40 07/15/20 19:40 07/15/20 19:40 07/15/20 19:40 - Laboratory Results Critical Laboratory Results Reviewed: No Critical Results - Radiology Results Critical Radiology Results Reviewed: No Critical Results Discharge - Discharge Clinical Impression: Injury of conjunctiva and corneal abrasion of left eye w/o FB Qualifiers: Encounter type: initial encounter Qualified Code(s): S05.02XA - Injury of conjunctiva and corneal abrasion without foreign body, left eye, initial encounter Condition: Stable Disposition: HOME, SELF-CARE Additional Instructions: Do not rub eye. Take medications as prescribed. No driving on pain medicine. Use eyedrops or ocular cream as directed. Call ophthalmology to schedule an appointment for this coming week. Return to the ER if your condition worsens especially if you have worse in vision increased eye drainage/swelling/redness/pain Prescriptions: Ofloxacin [Ocuflox] 5 ml OP Q4H #10 ml Referrals: JULIO CHEEMA MD [Primary Care Provider] - Follow up as needed RJ SARMIENTO MD [ACTIVE STAFF] - Follow up as needed
[2020-07-15] MEDS ORDERED: HYDROCODONE/ACETAMINOPHEN 5-325 MG (6 TAB/ER DISP) PO PRN (22:37)
== END 2020-07-15 23:02 | disposition home or self-care (01) ==
LOC: ER 19:36
DX: S05.02XA Injury of conjunctiva and corneal abrasion without foreign body, left eye, initial encounter (principal); W61.33XA Pecked by chicken, initial encounter
CPT/HCPCS: 99283; J3490